=== PATIENT | female | born 1985 | race Caucasian/White ===

== ENCOUNTER 2017-04-22 13:15 | Inpatient (IN) | payer OTHER ==
[2017-04-22] MEDS ORDERED: Nalbuphine* 20 MG/ML 1 ML VIAL IM PRN (19:48)
[2017-04-22] MEDS ORDERED: Promethazine INJ(RESTRICTED)* 25 MG/ML 1 ML VIAL IM PRN (19:49)
[2017-04-22] MEDS ORDERED: Misoprostol TAB* 100 MCG ONE (23:00)
[2017-04-23] MEDS ORDERED: Misoprostol TAB* 100 MCG PO ONE (03:00)
[2017-04-23] MEDS ORDERED: Buffered Lidocaine 0.9% SYRIN* 5 ML/SYR SYRINGE ONE (05:46)
[2017-04-23] MEDS ORDERED: fentaNYL* 50 MCG/ML 2 ML VIAL (100 MCG VIAL) ONE (07:13)
[2017-04-23 07:33] LABS: Hematocrit 36 % (35-47); Hemoglobin 11.6 g/dl (12.0-16.0); Mean Corpuscular HGB Conc 33 g/dl (31-36); Mean Corpuscular Hemoglobin 27 pg (27-31); Mean Corpuscular Volume 83 fL (80-97); Mean Platelet Volume 7 um3 (7.4-10.4); Red Blood Count 4.28 10^6/ul (4.0-5.4); Red Cell Distribution Width 14 % (10.5-15); White Blood Count 22.7 10^3/ul (3.5-10.8)
[2017-04-23] MEDS ORDERED: Sodium Citrate/Citric Acid* 15 ML UDC ONE (07:42)
[2017-04-23 07:45] LABS: Albumin 2.9 g/dL (3.2-5.2); BUN/Creatinine Ratio 17.5 (8-20); Calcium 8.5 mg/dL (8.6-10.3); EGFR African American 141.7 (>60); EGFR Non-African American 110.2 (>60); Potassium 3.9 mmol/L (3.5-5.0); Total Bilirubin 0.4 mg/dL (0.2-1.0); Total Protein 5.9 g/dL (6.4-8.9)
[2017-04-23] MEDS ORDERED: Chloroprocaine 2%* 20 ML VIAL ONE (07:47)
[2017-04-23] MEDS ORDERED: Phenylephrine IV* 40 MCG/ML 10 ML SYRINGE ONE ×2 (07:47→08:37)
[2017-04-23] MEDS ORDERED: ceFAZolin 2 GM PREMIX (*) 2 GM/50 ML BAG IVPB ONE (07:59)
[2017-04-23] MEDS ORDERED: OXYTOCIN* 10 UNITS/ML 1 ML VIAL ONE ×2 (08:37→11:05)
[2017-04-23] MEDS ORDERED: EPHEDrine (Pressors)* 50 MG/ML VIAL ONE (08:37)
[2017-04-23] MEDS ORDERED: Ondansetron INJ* 2 MG/ML VIAL IV PRN (09:00)
[2017-04-23] MEDS ORDERED: Acetaminophen IV 1GM/100ML * 1,000 MG/100 ML VIAL IVPB ONE (09:00)
[2017-04-23] MEDS ORDERED: fentaNYL* 50 MCG/ML 2 ML VIAL (100 MCG VIAL) IV PRN (09:00)
[2017-04-23] MEDS ORDERED: oxyCODONE TAB* 5 MG TAB PO PRN (09:00)
[2017-04-23] MEDS ORDERED: Acetaminophen TAB* 325 MG PO PRN (09:31)
[2017-04-23] MEDS ORDERED: Witch Hazel PAD* JAR TOPICAL PRN (09:31)
[2017-04-23] MEDS ORDERED: Dibucaine 1% 28.35 GM TUBE PR PRN (09:31)
[2017-04-23] MEDS ORDERED: Ibuprofen TAB* 600 MG ONE (09:42)
[2017-04-23] MEDS ORDERED: Witch Hazel PAD* JAR ONE (09:43)
[2017-04-23] MEDS ORDERED: Oxytocin in LR* 20 UNITS/1,000 ML BAG IVPB SCH (10:00)
[2017-04-23] MEDS ORDERED: Misoprostol TAB* 200 MCG ONE (11:05)
[2017-04-23] MEDS: Docusate CAP* 100 MG PO SCH ×2 (14:12→21:31)
--- NOTE | 2017-04-23 14:45 | OP ---
OPERATIVE REPORT: DATE OF OPERATION: 04/23/17. DATE OF : 87. SURGEON: Dr. Torres. MINING SPECULATOR: Dr. Casillas. ANESTHESIA: Spinal. PRE-OP DIAGNOSIS: Retained placental lobe and perineal and vaginal lacerations, post spontaneous vag inal delivery. POST-OP DIAGNOSIS: Retained placental lobe and perineal and vaginal lacerations, post spontaneous va ginal delivery. OPERATIVE PROCEDURE: Manual removal of the placenta and repair of the vaginal and labial lacerations . ESTIMATED BLOOD LOSS: 300 mL. FLUIDS: She received 2 L IV crystalloid fluids. URINE OUTPUT: She 300 mL of urine output which was clear. FINDINGS: Findings on the exam under anesthesia, the patient was noted to have about 4 to 5 cm anter ior lower uterine segment densely adherent placental lobe. She also had a midline second degree perin eal laceration and a less secondary degree vaginal to labial laceration. DESCRIPTION OF PROCEDURE: The patient was taken to the operating room where she was identified. She was placed on the operating room table where a spinal anesthetic was obtained without difficulty. S he was then placed in the dorsal lithotomy position, prepped and draped in the normal sterile fashion . At this point, a Davison catheter had been inserted into the patient's bladder and the bladder was d raining of clear urine. I proceeded to do an exam under anesthesia which revealed findings as noted above. After the exam under anesthesia I introduced a hand vaginally and palpated the uterine fundus , the rest of the body, and the uterus. I was able to palpate a placental lobe adherent to the anter ior lower uterine segment of the uterus. I was able to break the adhesions from this placental lobe to the uterus and it was removed and was sent to Pathology immediately after removal. I proceeded to do an ultrasound which showed a thin endometrial lining throughout. I did a speculum exam, which re vealed no active bleeding. I then proceeded to repair the perineal laceration using a 3-0 Polysorb s uture in a running locked fashion and with subcuticular stitching. The left labial and vaginal lacer ations were repaired using 4-0 Monocryl suture subcuticularly. Patient tolerated the procedure well. Sponge, lap and needle counts were correct x2. She was then transferred to recovery room area in s table condition. [id number]/[facility] #: [id number]
[2017-04-23 15:18] LABS: Hematocrit 25 % (35-47); Hemoglobin 8.2 g/dl (12.0-16.0); Mean Corpuscular HGB Conc 33 g/dl (31-36); Mean Corpuscular Hemoglobin 28 pg (27-31); Mean Corpuscular Volume 84 fL (80-97); Mean Platelet Volume 7 um3 (7.4-10.4); Red Blood Count 2.95 10^6/ul (4.0-5.4); Red Cell Distribution Width 15 % (10.5-15); White Blood Count 18.9 10^3/ul (3.5-10.8)
[2017-04-23] MEDS: Ibuprofen TAB* 600 MG PO PRN ×2 (15:29→21:31)
[2017-04-23] MEDS: Ferrous Gluconate TAB* 324 MG TAB PO SCH (21:31)
[2017-04-24 07:25] LABS: Hematocrit 19 % (35-47); Hemoglobin 6.6 g/dl (12.0-16.0)
[2017-04-24 07:27] LABS: Comments Flag Yes
[2017-04-24] MEDS: Ibuprofen TAB* 600 MG PO PRN ×3 (08:24→21:47)
[2017-04-24] MEDS: Docusate CAP* 100 MG PO SCH ×3 (08:24→21:47)
[2017-04-24] MEDS: Ferrous Gluconate TAB* 324 MG TAB PO SCH ×2 (08:24→21:47)
[2017-04-24] MEDS ORDERED: Ferrous Gluconate TAB* 324 MG TAB PO SCH (09:00)
[2017-04-24 22:12] LABS: Add Diff/Slide Review? Slide Review Added; Comments Flag Yes; Hematocrit 23 % (35-47); Hemoglobin 7.9 g/dl (12.0-16.0); Mean Corpuscular HGB Conc 35 g/dl (31-36); Mean Corpuscular Hemoglobin 29 pg (27-31); Mean Corpuscular Volume 83 fL (80-97); Mean Platelet Volume 7 um3 (7.4-10.4); Red Blood Count 2.75 10^6/ul (4.0-5.4); Red Cell Distribution Width 15 % (10.5-15); White Blood Count 16.3 10^3/ul (3.5-10.8)
[2017-04-24 22:46] LABS: Eosinophils % 3 % (0-6); Immature Granulocytes 6 % (0-9); Myelocytes % 2 % (0-1); Neutrophil % 76 % (38-83)
[2017-04-24 22:47] LABS: RBC Morphology Normal (Normal)
[2017-04-25] MEDS: Ibuprofen TAB* 600 MG PO PRN (05:06)
[2017-04-25 07:54] VITALS: BP 125/77
[2017-04-25] MEDS: Ferrous Gluconate TAB* 324 MG TAB PO SCH (08:22)
[2017-04-25] MEDS: Docusate CAP* 100 MG PO SCH (08:22)
== END 2017-04-25 10:50 | disposition home or self-care (01) | DRG 767 ==
LOC: MCHOBOUT 13:15 → MCHOB 13:49
PROVIDERS: ADMIT Midwife; ATTEND Midwife
PROC: 10E0XZZ Delivery of Products of Conception, External Approach (ICD-10-PCS; principal; 2017-04-23)
PROC: 10D17Z9 Manual Extraction of Products of Conception, Retained, Via Natural or Artificial Opening (ICD-10-PCS; 2017-04-23)
PROC: 0KQM0ZZ Repair Perineum Muscle, Open Approach (ICD-10-PCS; 2017-04-23)
PROC: 0W3J3ZZ Control Bleeding in Pelvic Cavity, Percutaneous Approach (ICD-10-PCS; 2017-04-23)
PROC: 30233N1 Transfusion of Nonautologous Red Blood Cells into Peripheral Vein, Percutaneous Approach (ICD-10-PCS; 2017-04-23)
DX: O48.0 Post-term pregnancy (principal); D62 Acute posthemorrhagic anemia; O72.0 Third-stage hemorrhage; O70.1 Second degree perineal laceration during delivery; O77.0 Labor and delivery complicated by meconium in amniotic fluid; O90.81 Anemia of the puerperium; Z3A.40 40 weeks gestation of pregnancy; Z37.0 Single live birth
CPT/HCPCS: 36415; 80053; 85014; 85018; 85025; 85027; 86850; 86900; 86901; 86922; 88307; A9270-GY; J0690; J2300; J2400; J2550; J2590; J3010; P9040; S0191